=== PATIENT | male | born 1945 | race Caucasian/White ===

== ENCOUNTER → 2022-02-25 | Outpatient (CLI) | payer MEDICARE, OTHER ==
--- NOTE | 2022-02-25 10:56 | Diagnostic Imaging Report ---
Indication: Numbness in the 4th and 5th fingers. Time of Exam: 10:06 AM Three views of the right hand were obtained. The metacarpals are intact. The phalanges appear intact. 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 No fractures are seen. Carpus is unremarkable. IMPRESSION: No acute abnormality is detected. Dictated by: Dictated on workstation # [id number]
== END ==
LOC: ORTHO 09:53
PROVIDERS: ATTEND Orthopaedic Surgery
DX: M79.641 Pain in right hand (principal); R20.0 Anesthesia of skin
CPT/HCPCS: 73130; G0463; 99213